=== PATIENT | male | born 1965 | race Caucasian/White ===

== ENCOUNTER 2017-04-09 15:13 | Emergency (ER) | payer OTHER ==
[2017-04-09 16:08] LABS: BASOPHIL % 1.6 % (0-2); PLATELET COUNT 254 x10^3mcL (130-400)
[2017-04-09 16:10] LABS: RED CELL DISTRIBUTION WIDTH 15.3 % (11.5-14.5)
[2017-04-09 16:15] LABS: CALCIUM 8.8 mg/dL (8.5-10.1); CARBON DIOXIDE 24.5 mmol/L (21-32); CHLORIDE SERUM 107 mmol/L (98-107); CREATININE SERUM 0.9 mg/dL (0.7-1.3); GFR1 > 60 mL/min; GLUCOSE SERUM 86 mg/dL (74-106); POTASSIUM SERUM 3.8 mmol/L (3.5-5.1); SODIUM SERUM 141 mmol/L (136-145)
[2017-04-09 16:21] LABS: ALKALINE PHOSPHATASE 116 U/L (46-116); ALT/SGPT 14 U/L (16-63); AST/SGOT 14 U/L (15-37); BILIRUBIN TOTAL 0.2 mg/dL (0.20-1.00); TOTAL PROTEIN, SERUM 6.7 g/dL (6.4-8.2)
[2017-04-09 16:23] LABS: ALBUMIN 3.1 g/dL (3.4-5.0)
[2017-04-09 17:20] LABS: AMPHETAMINE QUAL UR POSITIVE (NEG <=1000)
[2017-04-09 19:22] VITALS: BP 123/76
== END 2017-04-09 19:22 | disposition home or self-care (01) ==
LOC: ED 15:13
PROVIDERS: Emergency Medicine
DX: T67.5XXA Heat exhaustion, unspecified, initial encounter (principal); I10 Essential (primary) hypertension; J45.909 Unspecified asthma, uncomplicated; G89.29 Other chronic pain; M54.9 Dorsalgia, unspecified; F15.10 Other stimulant abuse, uncomplicated; Z88.8 Allergy status to other drugs, medicaments and biological substances; Z86.59 Personal history of other mental and behavioral disorders; X58.XXXA Exposure to other specified factors, initial encounter; Y93.89 Activity, other specified; Y99.8 Other external cause status; Y92.89 Other specified places as the place of occurrence of the external cause
CPT/HCPCS: G0480; J2310; J7030; Q0092

== ENCOUNTER 2017-07-19 14:50 | Emergency (ER) | payer OTHER | END 2017-07-19 17:31 | disposition other institution (70) | LOC: ED 14:50 | DX: Z02.89 Encounter for other administrative examinations (principal) ==

== ENCOUNTER 2017-07-19 14:50 | Emergency (ER) | payer OTHER ==
[~2017-07-19] VITALS: Ht 177.8 cm; Wt 81.6 kg
[2017-07-19 17:31] VITALS: BP 140/74
== END 2017-07-19 17:31 | disposition other institution (70) ==
LOC: ED 14:50
DX: M70.21 Olecranon bursitis, right elbow (principal); Y93.89 Activity, other specified
CPT/HCPCS: J2001

== ENCOUNTER 2017-08-16 14:55 | Emergency (ER) | payer OTHER | END 2017-08-16 16:34 | disposition left against medical advice (07) | LOC: ED 14:55 | DX: Z53.21 Procedure and treatment not carried out due to patient leaving prior to being seen by health care provider (principal) ==

== ENCOUNTER 2017-08-23 17:57 | Emergency (ER) | payer OTHER ==
[2017-08-23 18:37] VITALS: BP 149/105
== END 2017-08-23 18:37 | disposition other institution (70) ==
LOC: ED 17:57
DX: J40 Bronchitis, not specified as acute or chronic (principal); F32.9 Major depressive disorder, single episode, unspecified; M54.5 Low back pain; R11.10 Vomiting, unspecified; I10 Essential (primary) hypertension; Z88.8 Allergy status to other drugs, medicaments and biological substances

== ENCOUNTER 2017-11-21 17:02 | Inpatient (IN) | payer OTHER ==
[~2017-11-21] VITALS: Ht 180.3 cm; Wt 66.5 kg
[2017-11-21 20:17] LABS: BASOPHIL % 1.2 % (0-2); PLATELET COUNT 240 x10^3mcL (130-400); RED CELL DISTRIBUTION WIDTH 13.7 % (11.5-14.5)
[2017-11-21 20:26] LABS: CALCIUM 9.2 mg/dL (8.5-10.1); CARBON DIOXIDE 25.1 mmol/L (21-32); CHLORIDE SERUM 104 mmol/L (98-107); CREATININE SERUM 0.9 mg/dL (0.7-1.3); GFR1 > 60 mL/min; GLUCOSE SERUM 96 mg/dL (74-106); POTASSIUM SERUM 3.5 mmol/L (3.5-5.1); SODIUM SERUM 140 mmol/L (136-145)
[2017-11-21 20:31] LABS: ALBUMIN 3.7 g/dL (3.4-5.0); ALKALINE PHOSPHATASE 102 U/L (46-116); ALT/SGPT 43 U/L (16-63); AST/SGOT 34 U/L (15-37); BILIRUBIN TOTAL 0.59 mg/dL (0.20-1.00); TOTAL PROTEIN, SERUM 7.2 g/dL (6.4-8.2)
[2017-11-21 20:39] LABS: MAGNESIUM 2.2 mg/dL (1.8-2.4); PHOSPHOROUS 3.1 mg/dL (2.5-4.9)
[2017-11-21 20:41] LABS: CHOLESTEROL/HDL RATIO 2.1
[2017-11-21 20:44] LABS: T3 TOTAL 1.17 ng/mL
[2017-11-21 20:46] VITALS: BP 142/97
[2017-11-21 20:51] VITALS: Ht 180.3 cm; Wt 66.5 kg
[2017-11-21 21:03] LABS: FREE T4 1.25 ng/dL (0.76-1.46); FREE THYROXINE INDEX 3.2 ug/dL (1.4-4.5); T4(THYROXINE) 8.9 ug/dL (4.7-13.3)
[2017-11-22 05:43] VITALS: BP 121/68
[2017-11-22 06:40] LABS: BASOPHIL % 0.3 % (0-2); CALCIUM 9.5 mg/dL (8.5-10.1); CARBON DIOXIDE 24.9 mmol/L (21-32); CHLORIDE SERUM 107 mmol/L (98-107); GFR1 > 60 mL/min; GLUCOSE SERUM 144 mg/dL (74-106); PLATELET COUNT 228 x10^3mcL (130-400); POTASSIUM SERUM 4.2 mmol/L (3.5-5.1); RED CELL DISTRIBUTION WIDTH 14.2 % (11.5-14.5); SODIUM SERUM 141 mmol/L (136-145)
[2017-11-22 10:13] VITALS: BP 146/88
[2017-11-22] MEDS ORDERED: LIO10 PO (12:13)
[2017-11-22] MEDS ORDERED: METOPROLOL TART25 M1 PO (12:14)
[2017-11-22] MEDS ORDERED: WELSR100 PO (12:14)
[2017-11-22] MEDS ORDERED: NEU100 PO (12:14)
[2017-11-22] MEDS ORDERED: SEROQUEL200 MG PO (12:16)
[2017-11-22] MEDS ORDERED: LIT300 PO (12:16)
[2017-11-22] MEDS ORDERED: BUS10 PO (12:16)
[2017-11-22] MEDS ORDERED: NOR10T PO (13:44)
[2017-11-22 14:48] VITALS: BP 146/88
== END 2017-11-22 16:17 | disposition home or self-care (01) | DRG 347 ==
LOC: ED 17:02 → MU 19:54 → DU 19:54 → MU 11-22 09:26
PROVIDERS: Family Medicine; Specialist
DX: M51.27 Other intervertebral disc displacement, lumbosacral region (principal); F25.0 Schizoaffective disorder, bipolar type; I10 Essential (primary) hypertension; G89.29 Other chronic pain; F41.1 Generalized anxiety disorder; J45.909 Unspecified asthma, uncomplicated; Z59.0 Homelessness; Z87.891 Personal history of nicotine dependence; Z88.8 Allergy status to other drugs, medicaments and biological substances
CPT/HCPCS: 83880; 84439; G0480; J1170; J1885; J2405; J2930; J3010; J7030; J8540; Q0162

== ENCOUNTER 2017-12-27 18:12 | Emergency (ER) | payer OTHER ==
[~2017-12-27] VITALS: Ht 177.8 cm; Wt 69.6 kg
[~2017-12-27 18:12] MED LIST: BUS10 PO; LIO10 PO; LIT300 PO; METOPROLOL TART25 M1 PO; NEU100 PO; NOR10T PO; SEROQUEL200 MG PO; WELSR100 PO
[2017-12-27 18:57] VITALS: Ht 177.8 cm; Wt 69.6 kg
[2017-12-27 21:15] VITALS: BP 132/84
== END 2017-12-27 21:15 | disposition home or self-care (01) ==
LOC: ED 18:12
DX: G89.29 Other chronic pain (principal); M54.5 Low back pain; J45.909 Unspecified asthma, uncomplicated; F17.210 Nicotine dependence, cigarettes, uncomplicated; I10 Essential (primary) hypertension; Z88.8 Allergy status to other drugs, medicaments and biological substances
CPT/HCPCS: 99406; J1885

== ENCOUNTER 2018-01-28 08:41 | Inpatient (IN) | payer OTHER ==
[~2018-01-28] VITALS: Ht 177.8 cm; Wt 72.7 kg
[2018-01-28 12:21] LABS: BASOPHIL % 0.5 % (0-2); PLATELET COUNT 218 x10^3mcL (130-400); RED CELL DISTRIBUTION WIDTH 14.3 % (11.5-14.5)
[2018-01-28 12:52] LABS: CALCIUM 8.4 mg/dL (8.5-10.1); CARBON DIOXIDE 27.8 mmol/L (21-32); CHLORIDE SERUM 102 mmol/L (98-107); CREATININE SERUM 0.9 mg/dL (0.7-1.3); GFR1 > 60 mL/min; GLUCOSE SERUM 111 mg/dL (74-106); POTASSIUM SERUM 4.2 mmol/L (3.5-5.1); SODIUM SERUM 138 mmol/L (136-145)
[2018-01-28 12:53] LABS: T3 TOTAL 1.06 ng/mL
[2018-01-28 12:56] LABS: ALKALINE PHOSPHATASE 107 U/L (46-116); ALT/SGPT 25 U/L (16-63); AST/SGOT 21 U/L (15-37); BILIRUBIN TOTAL 0.3 mg/dL (0.20-1.00); TOTAL PROTEIN, SERUM 6.2 g/dL (6.4-8.2)
[2018-01-28 13:07] VITALS: BP 115/72
[2018-01-28 13:13] VITALS: Ht 177.8 cm; Wt 72.7 kg
[2018-01-28 13:24] LABS: FREE T4 1.14 ng/dL (0.76-1.46); FREE THYROXINE INDEX 2.4 ug/dL (1.4-4.5); T4(THYROXINE) 6.7 ug/dL (4.7-13.3)
[2018-01-28 13:53] LABS: IRON 70 ug/dL (65-170); TOTAL IRON BINDING CAPACITY 257 ug/dL (250-450)
[2018-01-28 13:56] LABS: MAGNESIUM 2.1 mg/dL (1.8-2.4); PHOSPHOROUS 4.4 mg/dL (2.5-4.9)
[2018-01-28 14:29] LABS: RED BLOOD CELLS 3.99 M/mm3 (4.52-5.90)
[2018-01-28 14:52] VITALS: BP 115/72
[2018-01-28 17:39] VITALS: BP 135/89
[2018-01-28 21:10] VITALS: BP 145/82
[2018-01-29 05:40] VITALS: BP 129/81
[2018-01-29 06:19] LABS: BASOPHIL % 0.1 % (0-2); PLATELET COUNT 246 x10^3mcL (130-400); RED CELL DISTRIBUTION WIDTH 14.5 % (11.5-14.5)
[2018-01-29 06:39] LABS: CHLORIDE SERUM 104 mmol/L (98-107); CREATININE SERUM 0.8 mg/dL (0.7-1.3); GFR1 > 60 mL/min; GLUCOSE SERUM 123 mg/dL (74-106); PHOSPHOROUS 3.1 mg/dL (2.5-4.9); POTASSIUM SERUM 4.4 mmol/L (3.5-5.1); SODIUM SERUM 137 mmol/L (136-145)
[2018-01-29 08:56] VITALS: BP 131/82
[2018-01-29 12:23] VITALS: BP 131/82
== END 2018-01-29 12:45 | disposition home or self-care (01) | DRG 347 ==
LOC: ED 08:41 → DU 12:10 → MU 01-29 10:14
PROVIDERS: Family Medicine; Specialist
DX: M51.26 Other intervertebral disc displacement, lumbar region (principal); N17.0 Acute kidney failure with tubular necrosis; F25.9 Schizoaffective disorder, unspecified; I10 Essential (primary) hypertension; J45.909 Unspecified asthma, uncomplicated; G89.29 Other chronic pain; M54.9 Dorsalgia, unspecified; F31.9 Bipolar disorder, unspecified; Z88.8 Allergy status to other drugs, medicaments and biological substances; D64.9 Anemia, unspecified; F17.200 Nicotine dependence, unspecified, uncomplicated; F41.1 Generalized anxiety disorder
CPT/HCPCS: 83880; 84439; 94150; 97110-GP; 97116-GP; 97530-GP; G0480; J1100; J1885; J2270; J2405; J3010; J7030; J7040; J7620; Q0092

== ENCOUNTER 2019-05-29 15:02 | Emergency (ER) | payer OTHER | END 2019-05-29 16:28 | disposition other institution (70) | LOC: ED 15:02 | DX: Z02.89 Encounter for other administrative examinations (principal) ==

== ENCOUNTER 2019-05-29 15:02 | Emergency (ER) | payer OTHER ==
[~2019-05-29] VITALS: Ht 180.3 cm; Wt 68.0 kg
[2019-05-29 15:04] VITALS: Ht 180.3 cm; Wt 68.0 kg
[2019-05-29 16:28] VITALS: BP 122/66
== END 2019-05-29 16:28 | disposition other institution (70) ==
LOC: ED 15:02
DX: M54.5 Low back pain (principal); G89.29 Other chronic pain; R20.2 Paresthesia of skin; J45.909 Unspecified asthma, uncomplicated; I10 Essential (primary) hypertension; Z88.8 Allergy status to other drugs, medicaments and biological substances; Z59.0 Homelessness
CPT/HCPCS: J1885

== ENCOUNTER 2020-01-26 14:22 | Emergency (ER) | payer OTHER ==
[~2020-01-26] VITALS: Ht 180.3 cm; Wt 74.8 kg
[2020-01-26 14:31] VITALS: BP 137/83; Ht 180.3 cm; Wt 74.8 kg
== END 2020-01-26 16:05 | disposition home or self-care (01) ==
LOC: ED 14:22
DX: M62.830 Muscle spasm of back (principal); J45.909 Unspecified asthma, uncomplicated; I10 Essential (primary) hypertension; Z88.8 Allergy status to other drugs, medicaments and biological substances
CPT/HCPCS: 72072